=== PATIENT | male | born 1940 | race African-American/Black ===

== ENCOUNTER 2020-05-26 11:56 | Outpatient (CLI) | payer OTHER, MEDICAID, SELFPAY ==
--- NOTE | 2020-05-26 12:01 | ECG_ITS ---
Measurements Intervals [place] Rate: 69 P: 55 W[place]: 188 QRS: -50 QRSD: 88 T: 56 QT: 355 QTc: 382 Interpretive Statements SINUS RHYTHM WITH MARKED SINUS ARRHYTHMIA LEFT ANTERIOR FASCICULAR BLOCK BASELINE ARTIFACT- I, II, III, AVR, AVL, V1 ABNORMAL ECG Electronically Signed On 05-26-2020 12:25:13 CDT by Jarod Ureña D.O.
[2020-05-26 13:02] LABS: Anion Gap 9 mmol/L (8-16); Blood Urea Nitrogen 40 mg/dL (9-20); Calcium 9.6 mg/dL (8.4-10.2); Carbon Dioxide 23 mmol/L (22-30); Chloride 103 mmol/L (98-107); Estimated Glomerular Filt Rate 51; Glucose 105 mg/dL (75-110); Potassium 5.1 mmol/L (3.4-5.0); Sodium 135 mmol/L (137-145)
== END 2020-05-26 11:57 | disposition home or self-care (01) ==
PROVIDERS: Anesthesiology; Visit Provider Urology
DX: Z01.818 Encounter for other preprocedural examination (principal); I10 Essential (primary) hypertension; R94.31 Abnormal electrocardiogram [ECG] [EKG]
CPT/HCPCS: 36415; 80048; 93005

== ENCOUNTER 2020-06-01 02:08 | Outpatient (CLI) | payer OTHER, MEDICAID, SELFPAY ==
[2020-06-01 17:03] LABS: SARS-CoV-2 RNA PCR Negative
== END 2020-06-01 02:09 | disposition home or self-care (01) ==
LOC: ANHCOVIDDT 02:08
PROVIDERS: Visit Provider Urology
DX: Z01.812 Encounter for preprocedural laboratory examination (principal); Z20.828 Contact with and (suspected) exposure to other viral communicable diseases
CPT/HCPCS: 87635; C9803; U0003

== ENCOUNTER 2020-06-03 00:13 | Day surgery (SDC) | payer OTHER, MEDICAID, SELFPAY ==
[2020-05-24 13:53] VITALS: BMI 28.1
--- NOTE | 2020-05-28 07:36 | P.HP_ITS ---
History of Present Illness History of Present Illness Consent: Risks, benefits, and alternatives have been discussed and questions answered. Patient agrees to proceed with procedure. Chief complaint: BPH Narrative: Ted Zaragoza is a 80 year old male with clinically localized CaP who's opted for definitive pelvic radiaiton as treatemtn. Review of Systems Cardiovascular: Cardiovascular: Denies chest pain, Denies lightheadedness, Denies palpitations and Denies dyspnea Respiratory: Respiratory: Denies dyspnea Gastrointestinal: Gastrointestinal: Denies diarrhea, Denies nausea and Denies vomiting Genitourinary: Genitourinary: Denies hematuria and Denies dysuria Endocrine: Endocrine: Denies palpitations PMFSH Social History Social History Smoking packs per day: 0.5 Smoking cigarettes per day: 10.0 Years smoked: 8 Smoking pack-years: 4.00 Smoking status: Former smoker Tobacco type: cigarettes Smoking end date: 09/24/89 Spiritual care concerns: No Meds Home Medications and Allergies Home Medications Medication Instructions Recorded Confirmed Type ascorbic acid (vitamin C) 500 mg PO DAILY 05/24/20 05/24/20 History aspirin [Adult Low Dose Aspirin] 81 mg PO DAILY 05/24/20 05/24/20 History cholecalciferol (vitamin D3) 25 mcg PO DAILY 05/24/20 05/24/20 History cyanocobalamin (vitamin B-12) 1,000 mcg PO DAILY 05/24/20 05/24/20 History gabapentin 300 mg PO PRN PRN 05/24/20 05/24/20 History lisinopril 5 mg PO QAM 05/24/20 05/24/20 History magnesium 250 mg PO DAILY 05/24/20 05/24/20 History naproxen sodium [Aleve] 440 mg PO QAM 05/24/20 05/24/20 History sildenafil 25 mg PO DAILY PRN 05/24/20 05/24/20 History simvastatin 20 mg PO QAM 05/24/20 05/24/20 History tramadol 50 mg PO Q6H PRN 05/24/20 05/24/20 History triamterene-hydrochlorothiazid 1 tablet PO QAM 05/24/20 05/24/20 History vitamin E 400 unit PO DAILY 05/24/20 05/24/20 History Allergies Allergy/AdvReac Type Severity Reaction Status Date / Time No Known Allergies Allergy Verified 05/24/20 13:41 Exam Const: General: no acute distress Resp: Effort & Inspection: normal respiratory effort GI: Inspection: non-distended GI Palp: No abdominal tenderness and No Guarding due to palpation present (GI) Auscultation: normal bowel sounds Assessment and Plan Assessment and plan (1) Prostate cancer: Code(s): C61 - Malignant neoplasm of prostate Status: Acute Assessment and Plan: * Transrectal ultrasound with transperineal placement of SpaceOAR. Pt. aware of risks of this procedure including, but not limited to, rectal injury, urinary tract infection with possible sepsis or septic shock, hematuria and inability to deliver the SpaceOAR. He also aware there is no alternative procedure to accomplish the same ends at this time.
[2020-06-03] VITALS (7 sets, daily range): BP systolic 117–127; BP diastolic 64–79; PULSE 52–63; RESP 12–18; TEMP 36.5; O2SAT 100
--- NOTE | 2020-06-03 07:11 | WPDHPUPDATE1 ---
History and Physical Update Update Date/Time: 06/03/20 07:11 History and Physical has been reviewed, including an updated exam of the patient. There are NO changes in the patient's condition. Risks, benefits, and alternatives have been discussed and questions answered. Patient agrees to proceed with procedure.
[2020-06-03] MEDS: LACTATED RINGERS 1,000 ML 30 ML IV CONT (09:51)
--- NOTE | 2020-06-03 09:51 | WPDANESEPPF ---
Anes - Initial Pre Proc Eval Procedure: Operation Date: 06/03/20 12:00 Proposed Procedures p Insertion SpaceOAR Hydrogel System - Kirt Olivera MD Date/Time: 06/03/20 09:51 Surgeon: Kirt Olivera MD Pre Op Diagnosis: BPH Patient Data Age: 80 Gender: M Height: 5 ft 7 in Weight: 81.65 kg Allergies Allergy/AdvReac Type Severity Reaction Status Date / Time No Known Allergies Allergy Verified 05/24/20 13:41 Home Medications Medication Instructions Recorded Confirmed Type ascorbic acid (vitamin C) 500 mg PO DAILY 05/24/20 05/24/20 History aspirin [Adult Low Dose Aspirin] 81 mg PO DAILY 05/24/20 05/24/20 History cholecalciferol (vitamin D3) 25 mcg PO DAILY 05/24/20 05/24/20 History cyanocobalamin (vitamin B-12) 1,000 mcg PO DAILY 05/24/20 05/24/20 History gabapentin 300 mg PO PRN PRN 05/24/20 05/24/20 History lisinopril 5 mg PO QAM 05/24/20 05/24/20 History magnesium 250 mg PO DAILY 05/24/20 05/24/20 History naproxen sodium [Aleve] 440 mg PO QAM 05/24/20 05/24/20 History sildenafil 25 mg PO DAILY PRN 05/24/20 05/24/20 History simvastatin 20 mg PO QAM 05/24/20 05/24/20 History tramadol 50 mg PO Q6H PRN 05/24/20 05/24/20 History triamterene-hydrochlorothiazid 1 tablet PO QAM 05/24/20 05/24/20 History vitamin E 400 unit PO DAILY 05/24/20 05/24/20 History Patient hx anesthesia problems: none Family hx anesthesia problems: none PMFSH Past Medical History Medical History Hyperlipidemia Hypertension Prostate cancer Social History Social History Smoking packs per day: 0.5 Smoking cigarettes per day: 10.0 Years smoked: 8 Smoking pack-years: 4.00 Smoking status: Former smoker Tobacco type: cigarettes Smoking end date: 09/24/89 Living arrangements: alone Spiritual care concerns: No Anes - Eval Final PreProcedure Day of Procedure 06/03/20 09:51 Patient weight: overweight Heart: regular rate and rhythm Lungs: clear to auscultation Airway: Mallampati scale class II Neurological: other (alert) Last oral intake: >/= 8 hours ASA classification: III Emergent: no Anesthetic plan: proceed Anesthesia type and monitoring: general GIVS and standard monitoring Informed Consent: The patient's anesthetic plan and its attendant risks and benefits were discussed with the patient/family/POA. Questions were solicited and answers provided to the satisfaction of the patient/family/POA.
[2020-06-03] MEDS: ceFAZolin 2 GM/D5W 50 ML 2 GM/50 ML BAG IVPB (12:44)
--- NOTE | 2020-06-03 13:13 | PM.PROC ---
Procedure Note - Detailed Date of procedure: 06/03/20 Pre-op diagnosis: BPH Post-op diagnosis: same Procedure performed: Insertion SpaceOAR Description of procedure: This patient has been diagnosed with prostate cancer. Patient has met with a radiation oncologist who has prescribed a course of radiation for treatment of the malignancy. Please refer to the Radiation Oncologist's note for radiation method, dose, number of fractions. After discussing with the radiation oncologist and the patient, it has been agreed upon to proceed with SpaceOAR placement. The purpose of SpaceOAR is to reduce rectal irradiation during radiation therapy by placing an absorbable polyethylene glycol (PEG) hydrogel (SpaceOAR) into perirectal fat space, thereby pushing the rectum away from the prostate. Prior to the procedure, a timeout was performed confirming the patient's identity and planned the procedure. Anesthesia was induced without complication. Antibiotics were administered prophylactically, and the patient completed an enema at home prior to the procedure. The patient was positioned in the dorsal lithotomy position. A transrectal ultrasound probe was inserted per rectum with clear visualization of the prostatic base and apex. SpaceOAR hydrogel was prepared as described in the tile setter supervisor?s 'Instructions For Use'. Under transrectal ultrasound guidance, a 15 cm 18G needle was inserted, transperineal, through the rectourethralis muscle and the needle tip advanced into the perirectal fat posterior to the prostate. The needle position, and downward bevel, were confirmed in both sagittal and axial duncan. 3-5cc of Sterile Saline was used to hydro-dissect the space between the Denonvilliers? fascia and anterior rectal wall. Aspiration did not yield any bleeding. With the needle tip at mid gland, the axial field was viewed to confirm the needle was not in the rectal wall -- movement of the needle tip without corresponding movement of the rectal wall confirmed perirectal placement. The assembled SpaceOAR delivery system was then attached to the 18G needle. Under ultrasound guidance in the sagittal plane, a smooth, continuous injection technique was used to dispense all 10cc of the SpaceOAR hydrogel into the space between the prostate and rectum. Optimal visualization of the needle during hydrogel administration was maintained at all times. An axial measurement of the space between the prostate (mid gland) and rectum immediately post-SpaceOAR injection was noted and measured [69mm]. No suspected penetration or compromise of the rectal wall occurred. Implants: SpaceOAR Anesthesia: GLMA Surgeon: Kirt Olivera MD Drains: No Packing: No Pathology: none sent Complications: No immediate complications Condition: stable Disposition: PACU
== END 2020-06-03 14:37 | disposition home or self-care (01) ==
PROVIDERS: Visit Provider Urology
PROC: (CPT 55874; principal; 2020-06-03 12:00)
DX: C61 Malignant neoplasm of prostate (principal); Z87.891 Personal history of nicotine dependence; Z79.82 Long term (current) use of aspirin
CPT/HCPCS: 55874; A9270; C1889; J0690; J1100; J2405; J2704; J3010; J7120

== ENCOUNTER 2021-07-21 10:34 | Outpatient (RCR) | payer OTHER, MEDICAID, SELFPAY | END 2021-07-21 23:59 | disposition home or self-care (01) | LOC: ANHAUDIO 10:34 | DX: Z46.1 Encounter for fitting and adjustment of hearing aid (principal) | CPT/HCPCS: V5160; V5261 ==

== ENCOUNTER 2021-07-21 11:00 | Outpatient (RCR) | payer OTHER, MEDICAID, SELFPAY | END 2021-07-21 23:59 | disposition home or self-care (01) | LOC: ANHAUDIO 11:00 | DX: Z46.1 Encounter for fitting and adjustment of hearing aid (principal) | CPT/HCPCS: 99199 ==